=== PATIENT | male | born 2005 | race Caucasian/White ===

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

== ENCOUNTER 2024-07-05 10:11 | Inpatient (IN) ==
[2024-07-05 12:34] LABS: ABS Lymphocytes 2.2 10^3/uL (1.0-4.8); ABS Monocytes 1.4 10^3/uL (0.0-1.1); ABS Neutrophils 10.3 10^3/uL (1.5-7.6); ABS Nucleated RBC 0.01 10^3/ul; Eosinophil % 0.2 %; Hematocrit 39.4 % (38-53); Hemoglobin 13.6 g/dL (13.2-16.3); Lymphocyte % 15.7 %; Mean Corpuscular Hemoglobin 31.6 pg (27-33); Mean Corpuscular Hgb Conc 34.4 g/dL (31-36); Mean Corpuscular Volume 91.8 fL (80-97); Mean Platelet Volume 9.7 fL (7.5-11.2); Nucleated Red Blood Cells % 0.1 %/100WBC (0.0-0.8); Platelet Count 180 10^3/uL (150-450); Red Blood Count 4.29 10^6/uL (4.06-5.63); Red Cell Distribution Width 12.6 % (12-17)
[2024-07-05 13:20] LABS: C Reactive Protein 100.25 mg/L (<8.01); Calcium 10.2 mg/dL (8.6-10.3); Creatinine, Serum 1.09 mg/dL (0.67-1.17); Potassium 4.9 mmol/L (3.5-5.0); eGFR CKD-EPI 99.6 (>60)
[2024-07-05] MEDS: NS 0.9% 1000 ml BAG 1,000 ML IV ONE (16:25)
[2024-07-05] MEDS: Clindamycin 600 MG/D5W BAG 600 MG/50 ML BAG IV ONE (16:46)
[2024-07-05] MEDS: Morphine 4 MG/ML VIAL (1 ml) IV ONE (18:50)
[2024-07-05] MEDS ORDERED: Senna TAB 8.6 mg TAB PO PRN (19:12)
[2024-07-05] MEDS ORDERED: Polyethylene Glycol 3350 17 GM PACKET PO PRN (19:12)
[2024-07-05] MEDS: Iohexol 300 (CONTRAST) 10 ML SDV IV ONE (21:26)
[2024-07-06] MEDS: CMCS:Pravastatin 10 mg TAB (NF) PO SCH (03:00)
[2024-07-06] MEDS: Clindamycin 600 MG/D5W BAG 600 MG/50 ML BAG IV SCH ×2 (04:37→06:51)
[2024-07-06 09:14] LABS: Hematocrit 38.3 % (38-53); Hemoglobin 13.3 g/dL (13.2-16.3); Mean Corpuscular Hgb Conc 34.8 g/dL (31-36); Mean Corpuscular Volume 92.1 fL (80-97); Platelet Count 140 10^3/uL (150-450); Red Blood Count 4.16 10^6/uL (4.06-5.63); Red Cell Distribution Width 12.6 % (12-17); White Blood Count 10.2 10^3/uL (3.6-10.2)
[2024-07-06] MEDS: Lactated Ringers 1000 ml BAG 1,000 ML IV SCH (10:04)
[2024-07-06] MEDS ORDERED: Clindamycin 600 MG/D5W BAG 600 MG/50 ML BAG IV SCH (13:00)
[2024-07-06] MEDS ORDERED: Zosyn per Pharmacy NOTE FOLLOW UP SCH (13:00)
[2024-07-06 13:36] LABS: Urine Appearance Clear; Urine Bilirubin Negative (Negative); Urine Blood Negative (Negative); Urine Color Yellow; Urine Glucose Negative (Negative); Urine Ketones 2+ (Negative); Urine Nitrite Negative (Negative); Urine Protein Trace (Negative); Urine Specific Gravity 1.037 (1.002-1.030); Urine Urobilinogen 1+ (Negative)
[2024-07-06] MEDS ORDERED: Vancomycin per Pharmacy 1 EA NOTE FOLLOW UP SCH (14:00)
[2024-07-06] MEDS: Piperacillin/Tazobac 3.375 BAG 3.375 GM/100 ML BAG IV ONE (14:19)
[2024-07-06] MEDS: Vancomycin 1,250 MG in NS 0.9% 250 ml 250 ML IVPB ONE (15:11)
[2024-07-06] MEDS ORDERED: Vancomycin per Pharmacy 1 EA NOTE FOLLOW UP PRN (15:50)
[2024-07-06] MEDS: ZOSYN 3.375 GM Q8H per EXTENDED INFUSION IV SCH (18:59)
[2024-07-07] MEDS: Vancomycin 1000 MG in NS 0.9% 250 ML IVPB SCH (00:36)
[2024-07-07 06:15] LABS: ABS Eosinophils 0.1 10^3/uL (0.0-0.5); ABS Lymphocytes 1.1 10^3/uL (1.0-4.8); ABS Monocytes 0.6 10^3/uL (0.0-1.1); ABS Neutrophils 3.7 10^3/uL (1.5-7.6); Eosinophil % 2.5 %; Hematocrit 36.9 % (38-53); Hemoglobin 13.2 g/dL (13.2-16.3); Lymphocyte % 19.7 %; Mean Corpuscular Hemoglobin 32.4 pg (27-33); Mean Corpuscular Hgb Conc 35.7 g/dL (31-36); Mean Corpuscular Volume 90.5 fL (80-97); Mean Platelet Volume 9.7 fL (7.5-11.2); Platelet Count 157 10^3/uL (150-450); Red Blood Count 4.07 10^6/uL (4.06-5.63); Red Cell Distribution Width 12.5 % (12-17); White Blood Count 5.5 10^3/uL (3.6-10.2)
[2024-07-07 06:27] LABS: Creatinine, Serum 1.01 mg/dL (0.67-1.17); Magnesium 1.8 mg/dL (1.9-2.7); Potassium 4.5 mmol/L (3.5-5.0); eGFR CKD-EPI 109.2 (>60)
[2024-07-07] MEDS: Magnesium Sulfate IV 1GM/100ML 1 GM/100 ML BAG IV ONE (09:04)
[2024-07-07] MEDS: Amoxicillin/Clavul 500/125 TAB (Augmentin 500 mg tab) PO SCH (11:06)
[2024-07-07 14:05] VITALS: BP 118/70
[2024-07-07] MEDS ORDERED: Vancomycin Trough Check NOTE FOLLOW UP ONE (15:30)
[2024-07-08 17:19] LABS: Tacrolimus 3.7 ng/mL
== END 2024-07-07 16:00 | disposition home or self-care (01) | DRG 254 ==
LOC: EDHOLD 10:11 → ED 10:11 → SUATTDRO 19:12 → MED 07-06 08:15
PROVIDERS: ADMIT Internal Medicine; ATTEND Hospitalist